=== PATIENT | male | born 1990 | race Caucasian/White ===

== ENCOUNTER 2017-03-17 16:45 | Emergency (ER) | payer SELFPAY ==
[~2017-03-17] VITALS: Ht 177.8 cm; Wt 75.0 kg
[2017-03-17 16:47] VITALS: BP 147/87; PULSE 109; RESP 15; TEMP 98.2; O2SAT 99
--- NOTE | 2017-03-17 16:52 | PD ---
Physical Exam Time Seen by Provider: 16:51 Narrative 27-year-old male presents with complaint of 3 cracked wisdom teeth that are painful 2 months. Denies fever, vomiting. No facial edema noted in triage. Patient seen in triage. Vital signs reviewed. Patient taken to medical bed. Data Data Last Documented VS Vital Signs Date Time Temp Pulse Resp B/P (MAP) Pulse Ox O2 Delivery O2 Flow Rate FiO2 03/17/17 16:47 98.2 109 15 147/87 (107) 99 MDM Supervised Visit with BEN: Paz Sykes Mar 17, 2017 16:52
--- NOTE | 2017-03-17 17:23 | PD ---
HPI Chief Complaint: Oral / Dental Pain or Problem Time Seen by Provider: 17:15 Travel History International Travel<30 days: No Contact w/Intl Traveler<30days: No Traveled to known affect area: No History of Present Illness HPI 27-year-old male with bilateral dental pain in the #17, #16, and #1 tooth. Patient states they've and cracked and troublesome for the past 2 months. Patient has been trying hdbu-pjx-jeeehel pain medications without improvement. Pain is worse mainly in the left lower jaw today. He denies difficulty swallowing, fever, or chills. Pain is significantly and 9 out of 10. He has no known drug allergies. PFSH Social History Alcohol Use: Yes Tobacco Use: Yes Substance Use: No Allergies-Medications (Allergen,Severity, Reaction): Coded Allergies: No Known Allergies (Unverified , 03/17/17) Reported Meds & Prescriptions Reported Meds & Active Scripts Active Magic Mouthwash Adult Liq (Multi-Ingredient Mouthwash/Gargle) 120 Ml Susp 10 Ml SWISH-SPIT Q2HR Each 5mL contains: Nystatin 200,000units, Diphenhydramine 4.25mg, Viscous Lidocaine 10mg, Day syrup 0.8 mL Mapap Extra Strength (Acetaminophen) 500 Mg Tab 1,000 Mg PO Q8HR PRN Ibuprofen 800 Mg Tab 800 Mg PO Q8H PRN Penicillin V Potassium 500 Mg Tab 500 Mg PO Q6H 10 Days Review of Systems Except as stated in HPI: all other systems reviewed are Neg General / Constitutional: No: Fever, Chills Eyes: No: Visual changes HENT: Positive: Dental Difficulties, Earache, No: Headaches, Vertigo, Lightheadedness, Sore Throat, Rhinitis, Rhinorrhea, Congestion, Nosebleed, Neck Stiffness, Neck Pain, Gingival Bleeding, Ear Discharge Cardiovascular: No: Chest Pain or Discomfort Respiratory: No: Shortness of Breath Gastrointestinal: No: Abdominal Pain Genitourinary: No: Dysuria Musculoskeletal: No: Pain Skin: No Rash Neurologic: No: Weakness Psychiatric: No: Depression Endocrine: No: Polydipsia Hematologic/Lymphatic: No: Easy Bruising Physical Exam Narrative GENERAL: Patient appears in moderate distress. SKIN: Warm and dry. HEAD: Atraumatic. Normocephalic. EYES: Pupils equal and round. No scleral icterus. No injection or drainage. ENT: No nasal bleeding or discharge. Mucous membranes pink and moist. Pharynx is normal. Uvula is midline. No significant lymphadenopathy. Airway is patent. Patient has obvious caries to the #1, #17, and #16 teeth. Patient has tenderness with palpation around these areas without obvious significant abscess at this time. Both TMs are somewhat dull and injected bilaterally more on the left than the right. NECK: Trachea midline. Supple and nontender without lymphadenopathy. CARDIOVASCULAR: Regular rate and rhythm. RESPIRATORY: No accessory muscle use. Clear to auscultation. Breath sounds equal bilaterally. MUSCULOSKELETAL: Extremities without clubbing, cyanosis, or edema. No obvious deformities. NEUROLOGICAL: Awake and alert. No obvious cranial nerve deficits. Motor grossly within normal limits. Five out of 5 muscle strength in the arms and legs. Normal speech. PSYCHIATRIC: Appropriate mood and affect; insight and judgment normal. Data Data Last Documented VS Vital Signs Date Time Temp Pulse Resp B/P (MAP) Pulse Ox O2 Delivery O2 Flow Rate FiO2 03/17/17 16:47 98.2 109 15 147/87 (107) 99 Orders Orders Ketorolac Inj (Toradol Inj) (03/17/17 17:30) Penicillin V Potassium (Veetids) (03/17/17 17:30) MDM Medical Decision Making Medical Screen Exam Complete: Yes Emergency Medical Condition: Yes Differential Diagnosis Dental pain. Dental caries. Dental abscess. Narrative Course Patient is given Toradol 60 mg IM now. Patient is given pen VK 500 mg by mouth now. Patient is continued on Pen-Vee K 500 mg 4 times a day 10 days. Patient is given ibuprofen 800 mg 3 times daily with food #30. Patient is given acetaminophen 500 mg, 2 tablets every 8 hours #60. Patient is given Magic mouthwash as directed every 2 hours as needed #120 mL with 2 refills. Patient is encouraged to seek dental resources as soon as possible. Patient can return the emergency Department with worsening symptoms if necessary. Diagnosis Primary Impression: Dental abscess Referrals: Dentist Patient Instructions: Dental Abscess (ED), General Instructions Additional Instructions: Patient is given Toradol 60 mg IM now. Patient is given pen VK 500 mg by mouth now. Patient is continued on Pen-Vee K 500 mg 4 times a day 10 days. Patient is given ibuprofen 800 mg 3 times daily with food #30. Patient is given acetaminophen 500 mg, 2 tablets every 8 hours #60. Patient is given Magic mouthwash as directed every 2 hours as needed #120 mL with 2 refills. Patient is encouraged to seek dental resources as soon as possible. Patient can return the emergency Department with worsening symptoms if necessary. Med/Other Pt SpecificInfo: Prescription(s) given Scripts Pqfnyyle-Ewwbfymmvsbnyim-Pgqxpcdzy Liq (Magic Mouthwash Adult Liq) 120 Ml Susp 10 ML SWISH-SPIT Q2HR for Mouth sores, #120 ML 2 Refills Each 5mL contains: Nystatin 200,000units, Diphenhydramine 4.25mg, Viscous Lidocaine 10mg, Day syrup 0.8 mL Prov: Jaida Bauman DO 03/17/17 Acetaminophen (Mapap Extra Strength) 500 Mg Tab 1000 MG PO Q8HR Y for PAIN, #60 TAB 0 Refills Prov: Jaida Bauman DO 03/17/17 Ibuprofen (Ibuprofen) 800 Mg Tab 800 MG PO Q8H Y for Pain/Inflammation, #30 TAB 0 Refills Prov: Jaida Bauman DO 03/17/17 Penicillin V Potassium (Penicillin V Potassium) 500 Mg Tab 500 MG PO Q6H for Infection for 10 Days, #40 TAB 0 Refills Prov: Jaida Bauman DO 03/17/17 Disposition: 01 DISCHARGE HOME Condition: Stable Jasson Garg Mar 17, 2017 17:23
[2017-03-17] MEDS ORDERED: PENI500T PO (17:25)
[2017-03-17] MEDS ORDERED: MAPA500T13 PO (17:25)
[2017-03-17] MEDS ORDERED: MAGICADU2 SWISH-SPIT (17:25)
[2017-03-17] MEDS ORDERED: IBUP800T23 PO (17:25)
[2017-03-17] MEDS ORDERED: KETOROLAC TROMETHAMINE 60 MG/2 ML (IM) VIAL IM ONE (17:30)
[2017-03-17] MEDS ORDERED: PENICILLIN V POTASSIUM 500 MG TAB PO ONE (17:30)
== END 2017-03-17 17:45 | disposition home or self-care (01) ==
LOC: NEPK 16:45
DX: K04.7 Periapical abscess without sinus (principal)
CPT/HCPCS: 96372; 99284; J1885